=== PATIENT | male | born 1950 | race Caucasian/White ===

== ENCOUNTER 2017-10-09 15:15 | Inpatient (IN) | payer OTHER ==
[~2017-10-09] VITALS: Ht 175.3 cm; Wt 104.3 kg
[2017-10-12] MEDS ORDERED: GABAPENTIN800 MG PO (10:05)
[2017-10-12] MEDS ORDERED: DOCUSATE SODIU100 MG PO (10:05)
[2017-10-12] MEDS ORDERED: AMOX-CLAV 875-1 EACH PO (10:06)
[2017-10-12] MEDS ORDERED: PERCOCET 5-3251 EACH PO (10:07)
[2017-10-12] MEDS ORDERED: CLONAZEPAM1 MG PO (10:07)
== END 2017-10-12 13:35 | disposition home or self-care (01) | DRG 460 ==
LOC: PED 10-11 05:07 → O/R 10-11 05:07 → SURH 10-11 15:15 → PED 10-11 15:37 → SURH 10-11 16:30 → PED 10-12 13:35
PROVIDERS: Orthopaedic Surgery Orthopaedic Surgery of the Spine
PROC: 0SG10AJ Fusion of 2 or more Lumbar Vertebral Joints with Interbody Fusion Device, Posterior Approach, Anterior Column, Open Approach (ICD-10-PCS; 2017-10-11)
PROC: 0ST20ZZ Resection of Lumbar Vertebral Disc, Open Approach (ICD-10-PCS; 2017-10-11)
PROC: 07DS3ZZ Extraction of Vertebral Bone Marrow, Percutaneous Approach (ICD-10-PCS; 2017-10-11)
PROC: 0SG10A0 Fusion of 2 or more Lumbar Vertebral Joints with Interbody Fusion Device, Anterior Approach, Anterior Column, Open Approach (ICD-10-PCS; principal; 2017-10-11 16:30)
DX: M47.26 Other spondylosis with radiculopathy, lumbar region (principal); M48.061 Spinal stenosis, lumbar region without neurogenic claudication; M43.16 Spondylolisthesis, lumbar region; I10 Essential (primary) hypertension; E03.8 Other specified hypothyroidism; E11.9 Type 2 diabetes mellitus without complications

== ENCOUNTER 2024-11-26 10:15 | Emergency (ER) | payer OTHER ==
[~2024-11-26] VITALS: Ht 152.4 cm; Wt 97.5 kg
[~2024-11-26 10:15] MED LIST: AMOX-CLAV 875-1 EACH PO; CLONAZEPAM1 MG PO; DOCUSATE SODIU100 MG PO; GABAPENTIN800 MG PO; PERCOCET 5-3251 EACH PO
[2024-11-26] MEDS ORDERED: LEVOTHYROXINE25 MCG (10:18)
[2024-11-26] MEDS ORDERED: ACETAMINOPHEN 500 MG GEL..CAP PO ONE ×2 (11:15→11:16)
[2024-11-26] MEDS ORDERED: DEXAMETHASONE SODIUM PHOSPHATE 4 MG/ML VIAL IV ONE (11:15)
[2024-11-26] MEDS ORDERED: 0.9 % SODIUM CHLORIDE 1,000 ML IV SCH (11:15)
[2024-11-26] MEDS ORDERED: ORPHENADRINE CITRATE 30 MG/ML AMPUL IM ONE (11:15)
[2024-11-26] MEDS ORDERED: ORPHENADRINE CITRATE 30 MG/ML AMPUL ONE (11:16)
[2024-11-26] MEDS ORDERED: DEXAMETHASONE SODIUM PHOSPHATE 4 MG/ML VIAL ONE (11:17)
[2024-11-26 12:08] LABS: BASO % 0.3 % (0.1-1.2); EOS # 0.05 (0.04-0.54); EOS % 0.5 % (0.7-7.0); LYMPH # 1.16 (1.18-3.74); LYMPH % 10.7 % (19.3-53.1); MEAN PLATELET VOLUME 10.20 fl (9.4-12.4); MONO # 0.14 (0.24-0.82); MONO % 1.3 % (4.7-12.5); NEUT # 9.40 (1.56-6.13); NEUT % 86.8 % (34.0-71.1); RED CELL DISTRIBUTION WIDTH 18.4 % (11.6-14.4)
[2024-11-26 12:34] LABS: ALT/SGPT 26.0 U/L (12-78); AST/SGOT 12.0 U/L (15-37); BILIRUBIN TOTAL 0.57 mg/dL (0.3-1.2); BUN CREA RATIO 12.0 (7.0-25.0); CREATININE SERUM 0.83 mg/dL (0.70-1.30); GFR 90.08; GLOBULINA 3.5 G/DL (2.4-3.5); GLUCOSE FASTING 110.0 mg/dL (65-100); OSMOLALITY SERUM 283.0 MOSM/KG (275-295)
[2024-11-26] MEDS ORDERED: IBU600 MG PO (14:58)
[2024-11-26] MEDS ORDERED: NORFLEX100MG PO (14:58)
== END 2024-11-26 15:21 | disposition home or self-care (01) ==
LOC: ER 10:15
PROVIDERS: General Practice
DX: M54.16 Radiculopathy, lumbar region (principal); I10 Essential (primary) hypertension; E03.8 Other specified hypothyroidism; E11.9 Type 2 diabetes mellitus without complications